=== PATIENT | female | born 1945 | race Caucasian/White ===

== ENCOUNTER 2016-05-13 08:12 | Outpatient (CLI) | payer OTHER, MEDICARE ==
--- NOTE | 2016-05-13 10:50 | DIAGNOSTIC IMAGING REPORT ---
PROCEDURE: MR BRAIN W/WO CONTRAST INDICATION: ACOUSTIC NEUROMA TECHNIQUE: Multiplanar multisequence MRI imaging of the brain without contrast. Post administration of 18 ml ProHance gadolinium based IV contrast, three plane T1 fat sat sequences were obtained. COMPARISON: None available FINDINGS: Postoperative changes are seen in the right CP angle. There is no evidence of residual or recurrent tumor. The midline structures are normally formed. The ventricular system is normal in size. Basal cisterns are patent. Flow voids in the major intracranial vessels are normal. No vascular malformations seen post contrast. Minimal periventricular small-vessel ischemic disease. No restricted diffusion to suggest acute ischemia. No evidence of acute or chronic intraparenchymal or extra-axial hemorrhage. No mass, mass effect, or midline shift. No suspicious enhancement. Normal signal in the visible bones. The sinuses are normally aerated. Visible extracranial soft tissues including the orbits are normal. There is increased signal in the tongue on the right most likely representing nerve damage from the previous surgery. IMPRESSION: 1. Normal postop MRI of the brain. 2. No abnormal enhancement.
== END 2016-05-13 23:00 ==
LOC: MRI SRH 08:12
DX: R42 Dizziness and giddiness (principal); Z98.890 Other specified postprocedural states